=== PATIENT | female | born 1955 | race Caucasian/White ===

== ENCOUNTER 2017-08-21 09:46 | Inpatient (IN) | payer MEDICARE, MEDICAID ==
[~2017-08-21 09:46] MED LIST: ACETAMINOPHEN 1,000 MG/100 ML BTL IV ONE; CEFAZOLIN 2 Gram 2 GM/50 ML BAG IVPB ONE; FAMOTIDINE 20MG TABLET PO ONE; MECLIZINE 25 MG TABLET PO ONE; METOCLOPRAMIDE 10 MG TABLET PO ONE
[2017-08-21] MEDS ORDERED: DIAZEPAM 5 MG TABLET PO PRN (13:13)
[2017-08-21] MEDS ORDERED: ZOLPIDEM TARTRATE 5 MG TABLET PO PRN (13:14)
[2017-08-21] MEDS ORDERED: MAGNESIUM HYDROXIDE 30 ML UDC PO PRN (13:15)
[2017-08-21] MEDS ORDERED: OXYCODONE HCL 5 MG TABLET PO PRN (13:15)
[2017-08-21] MEDS ORDERED: AL HYDROX/MAG HYDROX 30ML UD PO PRN (13:15)
[2017-08-21] MEDS ORDERED: METOCLOPRAMIDE HCL 10 MG/2 ML VIAL IVP PRN (13:15)
[2017-08-21] MEDS ORDERED: TRAMADOL HCL 50 MG TABLET PO PRN ×2 (13:15)
[2017-08-21] MEDS ORDERED: ONDANSETRON HCL IV 4 MG/2 ML VIAL IVP PRN (13:15)
[2017-08-21] MEDS ORDERED: SENNOSIDES/DOCUSATE SODIUM UD CAPSULE PO PRN (13:15)
[2017-08-21] MEDS ORDERED: HYDROMORPHONE HCL 1 MG/ML SYRINGE IVP PRN (13:15)
[2017-08-21] MEDS ORDERED: FLUTICASONE PROPIONATE 50MCG NASAL 16 GM BTL PRN (13:16)
[2017-08-21] MEDS ORDERED: IPRATROPIUM BR 0.02% NEB (0.5MG) INH PRN (13:16)
--- NOTE | 2017-08-21 14:21 | Operative Note ---
DATE OF SURGERY: 08/21/2017 SURGEON: Mike Ramos DO REFERRING PHYSICIAN: Valentin Oconnor DO PREOPERATIVE DIAGNOSIS: Primary osteoarthritis of the left knee. POSTOPERATIVE DIAGNOSIS: Primary osteoarthritis of the left knee. OPERATIVE PROCEDURE: Left total knee arthroplasty. DESCRIPTION: This 62-year-old female was taken to the operating room and placed in the supine position on the operating room table where spinal anesthesia was induced. The left lower extremity was then elevated. It was prepped with Hibiclens and draped in the usual sterile fashion, exsanguinated, and the tourniquet inflated to 300 mmHg. All scrubbed personnel wore personal isolation suits. An anterior longitudinal midline incision was made followed by parapatellar arthrotomy incision. An intercondylar drill hole was made for the intramedullary alignment mervin and a 5 degree valgus 9 mm cut was made in the distal femur. Wafers of bone were removed. The sizing jig as affixed and the patient demonstrated an AP/ML mismatch with the anteroposterior dimension being larger than the medial lateral. Therefore, it was necessary for us to move the cutting block 2 mm anteriorly. It was then pinned in 3 degrees of external rotation, and appropriate cuts were made. We then directed our attention to the proximal tibia, and the tibia was cut utilizing an extramedullary alignment guide. Once the appropriate alignment had been assured, a 3 degree posterior slope cut was made in the proximal tibia, and the wafer of bone was removed. Remnants of menisci and osteophytes were removed from the posterior aspect of the joint. The tibia was sized to a size 71. The stem punch was used. The patella was measured and then cut and restored to anatomic height utilizing a 34 x 7.8 mm patellar trial. The remainder of the trial components were inserted, and a 10 mm bearing was seen to be the appropriate size. The knee was taken through range of motion with excellent stability being identified. The joint was then copiously irrigated with lactated Ringer's solution after all the trial components had been removed, and Exparel was injected into the posterior, medial, and lateral corners of the joint. All components were cemented into place and excess cement was removed after the insertion of each component. Before placing the cement, all the bony surfaces were irrigated and dried. Initially, the tibia base plate was inserted followed by the tibial bearing, femoral component, and finally the patella. Once the cement had hardened, the knee was again taken through range of motion with excellent stability of the components being identified. The remainder of the Exparel was injected into the periosteum and joint capsule, the proximal tibia, and distal femur. A drain was placed through a separate stab incision, and the arthrotomy incision was closed with #2 Vicryl, subcutaneous tissue closed with O Vicryl, the skin was stapled, and Polar Care applied. The patient was taken to the recovery room in satisfactory condition. GROSS PATHOLOGY: This patient demonstrated severe full-thickness articular cartilage loss noted on both sides of the medial compartment with degenerative type 2 changes noted on the lateral femoral condyle and grade 3 changes noted on the patella. FINAL COMPONENTS INSERTED: [employer] size 62.5 cruciate-retaining femoral component, 71 tibia base plate, a 34 x 7.8 mm patella was used, and a 10 mm anterior stabilized E1 bearing was used. CC: DO RYAN Calhoun
[2017-08-21] MEDS: RINGERS SOLUTION,LACTATED 1,000 ML IV SCH (14:30)
[2017-08-21] MEDS ORDERED: RINGERS SOLUTION,LACTATED 1,000 ML IV PRN (14:33)
[2017-08-21] MEDS ORDERED: TRANEXAMIC ACID 1,000 MG in 0.9 % SODIUM CHLORIDE 100ML 100 ML IVPB ONE (15:00)
[2017-08-21] MEDS: OXYCODONE HCL 5 MG TABLET PO PRN ×2 (15:22→19:44)
[2017-08-21] MEDS ORDERED: BUPIVACAINE LIPOSOME 266MG/20ML VIAL IV ONE (15:32)
[2017-08-21] MEDS ORDERED: TRANEXAMIC ACID 1,000 MG/10 ML ML IV ONE (15:32)
[2017-08-21] MEDS ORDERED: BUPIVACAINE 0.75% W/EPI MPF 30ML VIAL IVP ONE (15:32)
[2017-08-21] MEDS: ACETAMINOPHEN 1,000 MG/100 ML BTL IV SCH ×2 (17:56→22:35)
[2017-08-21] MEDS: TRINTELLIX 10 MG PO SCH (18:24)
[2017-08-21] MEDS: CEFAZOLIN 2 Gram 2 GM/50 ML BAG IVPB SCH (18:26)
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
[2017-08-21] MEDS: FONDAPARINUX 2.5 MG/0.5 ML SYR SQ SCH (19:45)
[2017-08-21] MEDS: QVAR 80 MCG INH SCH (22:14)
[2017-08-22] MEDS: OXYCODONE HCL 5 MG TABLET PO PRN ×2 (03:09→09:01)
[2017-08-22] MEDS: CEFAZOLIN 2 Gram 2 GM/50 ML BAG IVPB SCH ×2 (03:13→11:37)
[2017-08-22] MEDS: ACETAMINOPHEN 1,000 MG/100 ML BTL IV SCH (03:51)
[2017-08-22] MEDS: RINGERS SOLUTION,LACTATED 1,000 ML IV SCH (06:14)
[2017-08-22 06:41] LABS: HEMATOCRIT 32.8 % (35.0-47.0); HEMOGLOBIN 10.3 gm/dl (11.6-16.0); MEAN CELL VOLUME 89.4 fl (81-97); MEAN CORPUSCULAR HGB CONC 31.4 g/dl (32-36); MEAN PLATELET VOLUME 9.6 fl (7.4-10.4); PLATELET COUNT 329 K/uL (130-400); RED BLOOD COUNT 3.67 M/uL (3.80-5.40); RED CELL DISTRIBUTION WIDTH 13.9 % (11.5-14.5)
[2017-08-22] MEDS ORDERED: SYNTHROID 112 MCG PO SCH (07:00)
[2017-08-22] MEDS: TRINTELLIX 10 MG PO SCH (08:13)
[2017-08-22] MEDS ORDERED: LORATADINE 10 MG TABLET PO SCH (10:00)
[2017-08-22] MEDS ORDERED: MONTELUKAST SODIUM 10MG TABLET PO SCH (10:00)
[2017-08-22] MEDS: QVAR 80 MCG INH SCH ×2 (10:00→17:04)
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
--- NOTE | 2017-08-22 12:00 | Physical Therapy Tx Note ---
Physical Therapy Tx Note - Treatment Note Tolerated: Good (Pt. c/o pain throughout tx session, which she attributes to walking around all night. Pt. reports she was late to let nursing know her pain was getting worse.) Total Time Spent With Patient: 32 Physical Therapy Tx Note: Detail (Pt. independently ambulated with standard walker for 108 feet. Pt. independently ascended and descended 3 steps with front wheeled walker appropriately. Pt. was independent with bed mobility and transfer. Pt. verbalized and demonstrated good understanding of HEP following exercise instruction from PT regarding exercises given to her at time of pre- operative appointment. Pt. was given a standard walker and wheels to attach, pt. denied having front wheels attached at AM tx session due to wanting more stability. Pt. was left supine with call light available and nursing was notified of pt.'s status.) Physical Therapy Problem List: Detail (1. Impaired bed mobility; 2. Impaired transfers; 3. Difficulty walking; 4. Decreased ROM L knee; 5. Decreased strength L LE.) Physical Therapy Goals: 1. Pt will safely and independently get out of and into bed. 2. Pt will perform sit/stand transfers safely and independently. 3. Pt will be independent in beginning home exercise program. 4. Pt will ambulate over household distances and up/down three stairs w/front wheeled walker and single handrail w/CGA. Prognosis: Good Physical Therapy Plan: Pt. will be D/C from inpatient PT and transition to home environment once pain is managed.
[2017-08-22] MEDS: OXYCODONE/APAP 7.5MG/325MG TABLET PO PRN ×2 (12:58→18:05)
[2017-08-22] MEDS ORDERED: HYDROCODONE/APAP 7.5/325MG TABLET PO PRN ×2 (13:15)
[2017-08-22] MEDS ORDERED: OXYCODONE/APAP 7.5MG/325MG TABLET PO PRN (13:15)
[2017-08-22] MEDS ORDERED: ACETAMINOPHEN 325 MG TAB PO PRN (13:15)
[2017-08-22] MEDS ORDERED: FENTANYL PF 100MCG/2ML VIAL IV ONE (14:53)
[2017-08-22] MEDS ORDERED: MIDAZOLAM HCL 2MG/2ML VIAL IV ONE (14:53)
[2017-08-22] MEDS ORDERED: HYDROMORPHONE HCL 2 MG/ML VIAL IV ONE (14:53)
[2017-08-22] MEDS ORDERED: DIPHENHYDRAMINE HCL IV 50 MG/ML VIAL IVP ONE (14:53)
[2017-08-22] MEDS ORDERED: PROPOFOL 10 MG/ML VIAL IV ONE (14:53)
[2017-08-22] MEDS ORDERED: LIDOCAINE 2% MDV (20MG/ML) 20ML VIAL IV ONE (14:53)
[2017-08-22] MEDS: FONDAPARINUX 2.5 MG/0.5 ML SYR SQ SCH (18:05)
--- NOTE | 2017-08-25 12:40 | Discharge Summary ---
DATE OF ADMISSION: 08/21/2017 DATE OF DISCHARGE: 08/22/2017 SURGEON: Mike Ramos DO ADMITTING DIAGNOSIS: Osteoarthritis of the left knee. DISCHARGE DIAGNOSIS: Osteoarthritis of the left knee. OPERATIVE PROCEDURE: Elective left total knee arthroplasty. HISTORY OF PRESENT ILLNESS: This 61-year-old female was admitted to the hospital for elective total knee arthroplasty and tolerated the operative procedure well. The drain was removed the first postoperative day. She cleared physical therapy and was ready for discharge and showed no sign of complication during the course of her hospitalization. She will be discharged with instructions to have outpatient physical therapy, previously arranged. In addition, she will wear her VAMSI hose during the day and remove them at night. She was given a prescription for 80 Percocet 7.5/325 to take 1 or 2 every 6 hours as necessary for pain. She will take aspirin 325 mg daily. Routine wound care instructions were given. She will follow up in the office in 2 weeks. Should she have any problems prior to being seen, she was instructed to call my office. RYAN
== END 2017-08-22 18:42 | disposition home or self-care (01) | DRG 470 ==
LOC: MEDSURG 09:46
PROVIDERS: ADMIT Orthopaedic Surgery; ATTEND Orthopaedic Surgery
PROC: 0SRD069 Replacement of Left Knee Joint with Oxidized Zirconium on Polyethylene Synthetic Substitute, Cemented, Open Approach (ICD-10-PCS; principal; 2017-08-21 12:00)
DX: M17.12 Unilateral primary osteoarthritis, left knee (principal); E03.9 Hypothyroidism, unspecified; I10 Essential (primary) hypertension
CPT/HCPCS: 85025; 94640; 94761; 97110; 97116; 97165; 97530; J1200; J2405; J3490

== ENCOUNTER 2017-09-20 11:11 | Emergency (ER) | payer MEDICARE, MEDICAID ==
[2017-09-20 11:43] LABS: INFLUENZA A POSITIVE (NEGATIVE); INFLUENZA B NEGATIVE (NEGATIVE)
[2017-09-20 12:35] LABS: URINE APPEARANCE CLEAR; URINE BILIRUBIN NEGATIVE (NEGATIVE); URINE BLOOD NEGATIVE (NEGATIVE); URINE COLOR YELLOW; URINE GLUCOSE (UA) NEGATIVE (NEGATIVE); URINE KETONE 40 mg/dL (NEGATIVE); URINE LEUKOCYTE ESTERASE TRACE (NEGATIVE); URINE NITRITE NEGATIVE (NEGATIVE); URINE PROTEIN TRACE (NEGATIVE); URINE UROBILINOGEN 0.2 E.U./dL (0.20 - 1.00)
[2017-09-20 12:44] LABS: BASO % 0.3 % (0-6); EOS % 2.7 % (0-6); GRAN % 56.3 % (47-80); HEMATOCRIT 40.1 % (35.0-47.0); HEMOGLOBIN 13.1 gm/dl (11.6-16.0); LYMPH % 28.2 % (16-45); MEAN CELL VOLUME 86.4 fl (81-97); MEAN CORPUSCULAR HEMOGLOBIN 28.2 pg (27-33); MEAN CORPUSCULAR HGB CONC 32.7 g/dl (32-36); MONO % 12.5 % (0-9); PLATELET COUNT 265 K/uL (130-400); RED BLOOD COUNT 4.64 M/uL (3.80-5.40); RED CELL DISTRIBUTION WIDTH 14.6 % (11.5-14.5); WHITE BLOOD COUNT W/O DIFF 6.3 K/uL (4.2-12.2)
[2017-09-20 12:52] LABS: URINE BACTERIA 2+; URINE RBC 0 - 2 (NONE SEEN)
[2017-09-20 12:55] LABS: BLOOD UREA NITROGEN 14 mg/dL (8-23); CREATININE 0.5 mg/dL (0.5-0.9); EST GLOMERULAR FILTRATION RATE > 60 mL/min
[2017-09-20 12:58] LABS: GLUCOSE,RANDOM 95 mg/dL (74-109)
[2017-09-20 13:01] LABS: ALB/GLOB RATIO 1.5 (1.1-1.8); ALBUMIN 4.8 g/dL (4.0-5.0); ALKALINE PHOSPHATASE 69 U/L (35-104); ALT/SGPT 34 U/L (<33); AST/SGOT 41 U/L (10.0-35.0)
[2017-09-20] MEDS ORDERED: 0.9 % SODIUM CHLORIDE 1,000 ML BAG IV ONE (13:04)
[2017-09-20 13:11] LABS: NTpro B-NATRIURETIC PEPTIDE 26.17 pg/mL (<125)
[2017-09-20 13:19] LABS: CRYPTOSPORIDIUM PARVUM ANTIGEN NOT DETECTED (NOT DETECT); GIARDIA LAMBLIA ANTIGEN NOT DETECTED (NOT DETECT); ROTOVIRUS NOT DETECTED (NOT DETECT)
[2017-09-20 13:56] LABS: MOLECULAR C DIFF TOXIN SCREEN NOT DETECTED (NOT DETECT)
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
--- NOTE | 2017-09-21 17:39 | RADIOLOGY REPORT ---
EXAM: CHEST 2 VIEWS HISTORY: SHORTNESS OF BREATH. TECHNIQUE: Frontal and lateral views of the chest. COMPARISON: None. FINDINGS: Heart size is normal. Osteopenia. The lungs are clear. No pneumothorax. IMPRESSION: NO ACUTE CARDIOPULMONARY PROCESS. JOB NUMBER: [id number] MTDD
== END 2017-09-20 15:25 | disposition home or self-care (01) ==
LOC: ER 11:11
DX: J10.1 Influenza due to other identified influenza virus with other respiratory manifestations (principal); E86.0 Dehydration; R06.02 Shortness of breath; J44.9 Chronic obstructive pulmonary disease, unspecified; Z87.891 Personal history of nicotine dependence
CPT/HCPCS: 71046; 80053; 81001; 82272; 83880; 84484; 85025; 87329; 87400; 87425; 87427; 87493; 89055; 93005; 93010; 99284; J7030

== ENCOUNTER 2018-07-29 06:42 | Day surgery (SDC) | payer MEDICARE, MEDICAID ==
[2018-07-29] MEDS ORDERED: FENTANYL PF 100MCG/2ML VIAL IV ONE (06:43)
[2018-07-29] MEDS ORDERED: MIDAZOLAM HCL 2MG/2ML VIAL IV ONE (06:43)
[2018-07-29] MEDS ORDERED: PROPOFOL 10 MG/ML VIAL IV ONE (06:43)
[2018-07-29] MEDS ORDERED: LIDOCAINE 2% MDV (20MG/ML) 20ML VIAL IV ONE (06:43)
[2018-07-29] MEDS ORDERED: DEXAMETHASONE PRESERVATIVE FREE 10MG/ML VIAL IV ONE (06:43)
[2018-07-29] MEDS ORDERED: BUPIVACAINE 0.5% W/EPI MPF 30 ML VIAL IVP ONE (06:43)
[2018-07-29] MEDS ORDERED: LIDOCAINE 1% W/EPI 1:200,000 MPF 30ML SQ ONE (06:43)
--- NOTE | 2018-07-30 20:08 | Operative Note ---
DATE OF SURGERY: 07/29/2018. PREOPERATIVE DIAGNOSIS: CERVICAL SPONDYLOSIS WITHOUT MYELOPATHY, ICD-10 CODE = M47.812. SURGERY: RADIOFREQUENCY RHIZOTOMY BILATERAL CERVICAL FACETS 5-6 AND 6-7. SURGEON: NABIL EDEN D.O. ANESTHESIA: LOCAL SEDATION. ANESTHESIA PROVIDER: KIMMIE. INDICATION: This patient presents with pain, which is primarily neck. Diagnostics show extensive and multiple levels of spondylosis. A facet series with 75+% pain control. Due to the failure of therapy and success of the facet series, the patient presents for rhizotomy for more long-term relief. PROCEDURE: Intravenous line, vital sign monitoring, IV sedation, prepped, draped, sterile technique. Under imaging, facet levels at 5-6 and 6-7 were identified and marked bilateral. Skin infiltrated. #22 gauge rhizotomy cannulas positioned. Stimulation trials conducted. Rhizotomy burn performed. Local with anti-inflammatory into the sites. Topical antibiotics. Sterile dressing was applied. We will monitor and evaluate. cc: Dr. Valentin Oconnor JOB NUMBER: [id number] MTDD
== END 2018-07-29 08:47 | disposition home or self-care (01) ==
LOC: SUR 06:42
PROVIDERS: ATTEND Pain Medicine Interventional Pain Medicine
DX: M47.812 Spondylosis without myelopathy or radiculopathy, cervical region (principal)
CPT/HCPCS: 64633; 64634; 01936; J1100; J3010